=== PATIENT | male | born 1965 | race Asian ===

== ENCOUNTER 2016-08-07 15:45 | Inpatient (IN) | payer MEDICAID ==
[~2016-08-07] VITALS: Ht 165.1 cm; Wt 77.2 kg
[2016-08-07 15:50] VITALS: BP 149/96
[2016-08-07] MEDS ORDERED: LORazepam 2 MG TABLET PO PRN (16:45)
[2016-08-07] MEDS ORDERED: ZOLPIDEM TARTRATE 10 MG TABLET PO PRN (16:45)
[2016-08-07] MEDS ORDERED: HALOPERIDOL 5 MG TABLET PO PRN (16:45)
[2016-08-07] MEDS ORDERED: INFLUENZA VIRUS VACCINE QVS 2016-17 (3YR+)/PF 60 MCG/0.5 ML SYRINGE IM ONE (17:30)
[2016-08-07] MEDS: RisperiDONE 1 MG TABLET PO SCH (17:45)
[2016-08-07] MEDS: BENZTROPINE MESYLATE 1 MG TABLET PO SCH (17:45)
[2016-08-08] MEDS: RisperiDONE 1 MG TABLET PO SCH ×2 (09:05→17:15)
[2016-08-08] MEDS: BENZTROPINE MESYLATE 1 MG TABLET PO SCH ×2 (09:05→17:15)
[2016-08-08 09:39] VITALS: BP 139/71
[2016-08-08] MEDS ORDERED: PETROLATUM,WHITE 71 GM JELLY TP PRN (10:00)
[2016-08-08] MEDS ORDERED: IBUPROFEN 600 MG TABLET PO PRN (10:00)
[2016-08-08] MEDS ORDERED: BACITRACIN 28.4 GM OINTMENT TP PRN (10:00)
[2016-08-08] MEDS ORDERED: MAG HYDROX/AL HYDROX/SIMETH ES 30 ML SUSPENSION UDCUP PO PRN (10:00)
[2016-08-08] MEDS ORDERED: CloNIDine HCL 0.1 MG TABLET PO PRN (10:00)
[2016-08-08] MEDS ORDERED: MAGNESIUM HYDROXIDE SUSPENSION 30 ML UDCUP PO PRN (10:00)
[2016-08-08] MEDS ORDERED: ALBUTEROL SULFATE HFA 90 MCG/PUFF 8 GM INHALER IH PRN (10:00)
[2016-08-08] MEDS ORDERED: BENZOCAINE/MENTHOL LOZENGE [8 LOZENGES/PACKET] MM PRN (10:00)
[2016-08-08] MEDS ORDERED: LOPERAMIDE HCL 2 MG CAPSULE PO PRN (10:00)
[2016-08-08] MEDS ORDERED: ONDANSETRON HCL 4 MG TABLET PO PRN (10:00)
[2016-08-08] MEDS ORDERED: ACETAMINOPHEN 325 MG TABLET PO PRN (10:00)
[2016-08-08 16:00] VITALS: BP 141/84
[2016-08-09 08:00] VITALS: BP 132/82
[2016-08-09] MEDS: BENZTROPINE MESYLATE 1 MG TABLET PO SCH ×2 (09:27→17:14)
[2016-08-09] MEDS: RisperiDONE 1 MG TABLET PO SCH ×2 (09:27→17:14)
[2016-08-09 19:13] VITALS: BP 141/95
[2016-08-10] MEDS: RisperiDONE 1 MG TABLET PO SCH (09:25)
[2016-08-10] MEDS: BENZTROPINE MESYLATE 1 MG TABLET PO SCH (09:25)
[2016-08-10 11:51] VITALS: BP 130/73
[2016-08-10] MEDS ORDERED: BENZ1TAB10 PO (12:18)
[2016-08-10] MEDS ORDERED: RISP1 PO (12:18)
== END 2016-08-10 13:00 | disposition home or self-care (01) | DRG 751 ==
LOC: 3EI 15:45
DX: F29 Unspecified psychosis not due to a substance or known physiological condition (principal); F32.9 Major depressive disorder, single episode, unspecified; G47.00 Insomnia, unspecified; R03.0 Elevated blood-pressure reading, without diagnosis of hypertension; F17.210 Nicotine dependence, cigarettes, uncomplicated; Z71.6 Tobacco abuse counseling; Z79.899 Other long term (current) drug therapy; Z28.21 Immunization not carried out because of patient refusal